=== PATIENT | female | born 1945 | race Caucasian/White ===

== ENCOUNTER 2020-01-22 06:54 | Emergency (ER) | payer MEDICARE, SELFPAY ==
[2020-01-22] VITALS (8 sets, daily range): BP systolic 102–185; BP diastolic 67–112; PULSE 77–114; RESP 14–22; TEMP 36.2; O2SAT 78–99
--- NOTE | ~2020-01-22 | XR_ITS ---
XR abdomen NG/feed tube insert INDICATION: Evaluate NG tube position. TECHNIQUE: Limited KUB perform for evaluating NG tube . COMPARISON: No prior studies for comparison. FINDINGS: There is a large hiatal hernia containing the NG tube above the diaphragm. Moderate gastric distention with air-fluid level. Visualized bowel gas pattern is nonspecific. IMPRESSION: 1: Large hiatal hernia containing the NG tube above the diaphragm. Moderate gastric distention with a ir-fluid level. Reviewed, dictated and finalized at location A. IMPRESSION: 1: Large hiatal hernia containing the NG tube above the diaphragm. Moderate gas tric distention with air-fluid level.
--- NOTE | ~2020-01-22 | CT_ITS ---
EXAMINATION: CT abdomen pelvis w con EXAM DATE: 01/22/2020 08:22 INDICATION: Sick after dinner last night, nausea vomiting abdominal pain. History hiatal hernia. TECHNIQUE: Spiral CT of the abdomen and pelvis was performed following intravenous injection of 100 m L Omnipaque 350. Axial, coronal and sagittal images were reviewed. The dose-length product (DLP) fo r this examination was 343.88 mGy-cm. The exposure was tailored according to patient size (auto mA e xposure control), and iterative reconstruction (ASIR) was used as additional dose reduction technique . There is no prior study for comparison. FINDINGS: There is large gastroesophageal hiatal hernia with gastric volvulus, gastric body rotated a april the aortic hiatus. This also appears to have mass effect on the compressed gastric antrum as it extends through the hiatus, only small amount of bowel contents or where as the stomach is severely d istended with fluid and gas. The liver, spleen, adrenal glands and pancreas are unremarkable. There are gallstones within an othe rwise unremarkable gallbladder. No evidence of obstructive biliary disease. Portal and splenic vein s are patent. Kidneys enhance symmetrically. There is no hydronephrosis. The uterus is not identi fied and has likely been surgically resected. There may be some component of pelvic prolapse. The bl adder is unremarkable. There is no retroperitoneal or pelvic lymphadenopathy. The appendix is normal. Apparent rectal wall thickening, can't exclude rectal cancer. There is extens deshawn colonic diverticulosis. There is no adjacent inflammatory change to suggest diverticulitis. The stomach and small bowel are unremarkable. There is expected amount of colonic stool. No free intra peritoneal gas. The heart is normal in size. There are no pericardial or pleural effusions. The l davie bases are unremarkable. There are no osteoblastic or osteolytic lesions identified. IMPRESSION: 1. Findings consistent with gastric volvulus; recommend surgical consult. 2. Apparent rectal wall thickening, possible cancer. 3. Probable pelvic prolapse. 4. Extensive colonic diverticulosis. 5. Cholelithiasis. I discussed gastric volvulus with Nafisa Tyson MD at 01/22/2020 08:43 CDT. Reviewed, dictated and finalized at location B.
--- NOTE | 2020-01-22 07:08 | ED.NAVMDI ---
HPI - Nausea/Vomiting/Diarrhea General Chief complaint: Nausea/Vomiting/Diarrhea Stated complaint: vomiting Time Seen by Provider: 01/22/20 07:08 Source: patient and family Mode of arrival: ambulatory Limitations: no limitations History of Present Illness HPI Narrative: Patient is a 74-year-old female with a history of hiatal hernia who presents for evaluation of epigastric and lower chest discomfort. Patient states her symptoms began after eating spaghetti meatballs last night, states before that she had been feeling fine. She reports a burning sensation in the epigastrium with radiation into her chest. She denies back pain, jaw pain or shoulder pain. She reports nausea and vomiting. She denies shortness of breath or difficulty breathing. No diaphoresis. No fever or cough. Patient states she struggles with this lower chest pain on a chronic basis and attributes this to her hiatal hernia. She reports mild constipation, no abdominal distention, no ripping or tearing sensation to the flank and no urinary symptoms. Related Data Allergies Allergy/AdvReac Type Severity Reaction Status Date / Time No Known Allergies Allergy Unknown Unverified 01/22/20 07:09 Review of Systems Review of Systems: Narrative: CONSTITUTIONAL: Denies fever, chills, or sweats. EYES: Denies visual changes, redness, or discharge. ENT: Denies rhinorrhea, congestion, sore throat, or otalgia. CARDIOVASCULAR: Reports lower chest pain RESPIRATORY: Denies cough or dyspnea. GASTROINTESTINAL: Reports upper abdominal pain, nausea, vomiting and constipation GENITOURINARY: Denies dysuria or hematuria. SKIN: Denies rash or itching. MUSCULOSKELETAL: Denies back pain, joint pain, or myalgia. NEUROLOGIC: Denies headache, numbness, or weakness. [facility] Past Medical History Medical History Hiatal hernia Hyperlipidemia Surgical History Surgical History (Updated 01/22/20 @ 07:25 by Nafisa Tyson MD) H/O rectocele repair H/O: hysterectomy Family History Family History (Updated 03/29/17 @ 10:21 by DOCTOR UNKNOWN) Other Diabetes mellitus Social History Social History Smoking status: Never smoker Alcohol intake: current Gender identity (if verbalized by the patient): Female Exam Narrative: Exam Narrative: GENERAL: Awake, alert, conversant HEAD: Normocephalic, atraumatic. EYES: PERRLA and EOMI. ENT: Nares clear, no rhinorrhea or epistaxis. Mucous membranes dry NECK: Supple. CHEST: No respiratory distress, breathing even and non labored HEART: Tachycardic rate, sinus rhythm ABDOMEN:Non distended, mild epigastric tenderness, mild right upper quadrant tenderness, no rebound, no guarding, positive periumbilical tenderness, no left lower quadrant tenderness, nonrigid EXTREMITIES: Normal range of motion. No edema. SKIN: Warm, dry, no rash. NEURO:No focal deficits. Alert and oriented x3 Course Vital Signs Vital signs: Vital Signs Temperature 36.2 C L 01/22/20 07:00 Pulse Rate 114 H 01/22/20 07:00 Respiratory Rate 18 01/22/20 07:00 Blood Pressure 161/112 H 01/22/20 07:00 Pulse Oximetry 99 01/22/20 07:00 Temperature 36.2 C L 01/22/20 07:00 Pulse Rate 83 01/22/20 13:03 Respiratory Rate 14 01/22/20 13:03 Blood Pressure 127/86 01/22/20 13:03 Pulse Oximetry 95 01/22/20 13:03 MDM - Nausea/Vomiting/Diarrhea MDM Narrative Medical decision making narrative: Patient is a 74-year-old female who presented for evaluation of abdominal pain and epigastric pain. At the time of assessment, patient is mildly dehydrated appearing and tachycardic. Otherwise she is hypertensive, afebrile. Patient without any COVID type features, no cough, fever, no loss of sense of taste or smell or recent sick contacts. Patient was tender in the epigastrium, no severe distention or rigidity. IV access obtained and labs were drawn. Pat
--- NOTE | 2020-01-22 07:23 | ECG_ITS ---
Measurements Intervals [place] Rate: 83 P: 70 FL: 158 QRS: -38 QRSD: 105 T: 65 QT: 419 QTc: 493 Interpretive Statements SINUS RHYTHM LEFT AXIS DEVIATION BORDERLINE R WAVE PROGRESSION, ANTERIOR LEADS BORDERLINE ST-T WAVE ABNORMALITY- HIGH LATERAL LEADS BASELINE ARTIFACT- I, III BORDERLINE ECG Electronically Signed On 01-22-2020 8:11:50 CDT by Rodrick Go D.O.
[2020-01-22] MEDS: SODIUM CHLORIDE 0.9% IV 2,000 ML 999 ML IV CONT (07:42)
[2020-01-22] MEDS: ONDANSETRON INJ 4 MG/2 ML VIAL IV PUSH (07:43)
[2020-01-22] MEDS: DICYCLOMINE HCL INJ 20 MG/2 ML VIAL IM (07:43)
[2020-01-22 07:49] LABS: Basophils Percent Auto 0.2 % (0.2-1.2); Hemoglobin 15.6 g/dL (12.0-15.0); Immature Granulocyte Absolute 0.03 K/mm3 (0.00-0.031); Immature Granulocyte Percent A 0.3 % (0-0.5); Lymphocytes Absolute Auto 0.95 K/mm3 (0.9-3.2); Lymphocytes Percent Auto 9.4 % (18.3-44.2); Mean Corpuscular HGB Conc 33.2 g/dl (32-36); Mean Corpuscular Hemoglobin 32.7 pg (26-34); Mean Corpuscular Volume 98.5 fl (80-100); Mean Platelet Volume 10.3 fl (7.4-10.4); Monocytes Absolute Auto 0.2 K/mm3 (0.1-0.6); Monocytes Percent Auto 2.2 % (2.6-8.5); Neutrophils Absolute Auto 8.9 K/mm3 (1.3-6.7); Neutrophils Percent Auto 87.9 % (45.5-73.1); Platelet Count Result 277 k/mm3 (150-375); Red Blood Count 4.77 M/mm3 (4.2-5.4); Red Cell Distribution Width 12.2 % (11.5-14.5); White Blood Count 10.1 K/mm3 (4.5-10.0)
[2020-01-22 07:58] LABS: Prothrombin Time 12.6 Seconds (11.1-14.7)
[2020-01-22 07:59] LABS: Partial Thromboplastin Time 24.9 SECONDS (22.3-36.8)
[2020-01-22 08:01] LABS: Alanine Aminotransferase 22 U/L (4-35); Alkaline Phosphatase 106 U/L (38-126); Anion Gap 13 mmol/L (8-16); Aspartate Amino Transferase 34 U/L (14-36); Bilirubin,Total 0.7 mg/dL (0.2-1.3); Blood Urea Nitrogen 15 mg/dL (7-17); Carbon Dioxide 26 mmol/L (22-30); Chloride 98 mmol/L (98-107); Estimated CRCL calculation 70 ml/min; Estimated Glomerular Filt Rate > 60; Glucose 181 mg/dL (65-105); Lipase 36 U/L (23-300); Potassium 3.8 mmol/L (3.4-5.0); Sodium 137 mmol/L (137-145)
[2020-01-22 08:08] LABS: Glucose Point of Care 147 (65-105)
[2020-01-22 08:13] LABS: Troponin I < 0.012 ng/mL (0.000-0.034)
[2020-01-22 09:01] LABS: Add Urine Microscopic? YES; Appearance Urine Clear (Clear); Bilirubin Urine Negative (Negative); Blood Urine Negative (Negative); Color Urine Straw (Yellow); Glucose Urine UA 3+ mg/dL (Negative); Ketones Urine Trace mg/dL (Negative); Leukocyte Esterase Ur Negative LEU/UL (Negative); Mucus Urine Rare /lpf; Nitrate Urine Negative (Negative); Protein Urine 3+ mg/dL (Negative); RBC Urine 0-2 /hpf (0-2); Squamous Epithelial Cell Urine Rare /hpf (Few); Urobilinogen Urine Negative mg/dL (<2.0); WBC Urine 0-3 /hpf
[2020-01-22] MEDS: METOCLOPRAMIDE HCL INJ 10 MG/2 ML VIAL IV PUSH (09:02)
[2020-01-22 10:20] LABS: Lactic Acid Reflex 3.9 mmol/L (0.7-2.1)
[2020-01-22] MEDS: SODIUM CHLORIDE 0.9% IV 1,000 ML 150 ML IV CONT (12:47)
[2020-01-22 13:07] LABS: Reflex Lactic Acid Yes or No Add Lactic
== END 2020-01-22 13:00 | disposition short-term general hospital (02) ==
PROVIDERS: Emergency Provider Emergency Medicine; PCP Family Medicine Adolescent Medicine
DX: K56.2 Volvulus (principal); A41.9 Sepsis, unspecified organism; R65.20 Severe sepsis without septic shock; E87.2 Acidosis; E78.5 Hyperlipidemia, unspecified
CPT/HCPCS: 36415; 74177; 80053; 81001; 82948; 83605; 83690; 84484; 85025; 85610; 85730; 93005; 96361; 96365; 96372; 96375; 99291; J0500; J2405; J2543; J2765; J7030; Q9967

== ENCOUNTER → 2021-02-24 16:16 | Outpatient (CLI) | payer MEDICARE, SELFPAY ==
--- NOTE | ~2021-02-24 | XR_ITS ---
EXAMINATION: XR chest 2V 02/24/2021 16:46 INDICATION: Right posterior chest pain PROCEDURE: 2 view chest COMPARISON: No prior studies for comparison. FINDINGS: The lungs are clear. The cardiomediastinal silhouette is within normal limits. There are no pleural effusions. There is no pneumothorax suspected. There is atherosclerosis and mild ectasia of the thoracic aorta. IMPRESSION: 1: NO ACUTE CARDIOPULMONARY DISEASE. Reviewed, dictated and finalized at location A.
--- NOTE | ~2021-02-24 | XR_ITS ---
XR scapula RT 02/24/2021 16:46 INDICATION: Persistent right posterior chest pain. PROCEDURE: 2 views right scapula COMPARISON: No prior studies for comparison. FINDINGS: Fracture, dislocation or subluxation is not identified. There is polyarticular osteoarthrit is of the right shoulder. The soft tissues appear within normal limits. No foreign bodies are identi fied. IMPRESSION: 1: NO ACUTE BONE OR JOINT ABNORMALITY IDENTIFIED. Reviewed, dictated and finalized at location A.
== END ==
PROVIDERS: PCP Family Medicine Adolescent Medicine; Visit Provider Family Medicine Adolescent Medicine
DX: R07.89 Other chest pain (principal); I70.0 Atherosclerosis of aorta
CPT/HCPCS: 71046; 73010

== ENCOUNTER → 2022-01-26 10:57 | Outpatient (CLI) | payer MEDICARE, SELFPAY ==
--- NOTE | ~2022-01-26 | MM_ITS ---
EXAMINATION: MM screening carley BI w isai HISTORY: Screening mammogram TECHNIQUE: Craniocaudal and mediolateral oblique 3-D tomosynthesis images were obtained and synthetic 2-D images were generated. CAD analysis was submitted and interpreted. COMPARISON: 05/09/2019, 03/16/2017 bilateral screening mammogram examinations BREAST PARENCHYMAL COMPOSITION: The breasts are almost entirely fatty. FINDINGS: There is no evidence of suspicious mass, calcification, or architectural distortion to sugg est malignancy in either breast. There has been no suspicious interval change. IMPRESSION: 1. No mammographic evidence of malignancy. 2. Recommend routine screening mammography in one year. BI-RADS Category 1: Negative Reviewed, dictated and finalized at location A.
== END ==
PROVIDERS: PCP Family Medicine Adolescent Medicine; Visit Provider Family Medicine Adolescent Medicine
DX: Z12.31 Encounter for screening mammogram for malignant neoplasm of breast (principal)
CPT/HCPCS: 77063; 77067

== ENCOUNTER → 2022-02-28 15:30 | Outpatient (CLI) | payer MEDICARE, SELFPAY ==
--- NOTE | ~2022-02-28 | XR_ITS ---
XR scapula LT DATE: 02/28/2022 15:44 INDICATION: Left scapular spine pain TECHNIQUE: 2 views COMPARISON: None FINDINGS: There is joint space narrowing and spurring at the left glenohumeral joint consistent with osteoarthritis. There is mild degenerative change at the left acromioclavicular joint. No scapular fr acture or bone destruction is detected. No abnormal left shoulder soft tissue calcification. IMPRESSION: Left glenohumeral osteoarthritis Reviewed, dictated and finalized at location A.
== END ==
PROVIDERS: PCP Family Medicine Adolescent Medicine; Visit Provider Family Medicine Adolescent Medicine
DX: M25.512 Pain in left shoulder (principal); M19.012 Primary osteoarthritis, left shoulder
CPT/HCPCS: 73010

== ENCOUNTER 2022-03-09 00:16 | Day surgery (SDC) | payer MEDICARE, SELFPAY ==
[2022-03-04 15:23] VITALS: BMI 24.8
--- NOTE | 2022-03-04 15:36 | PC.NURSE ---
Report to the Outpatient Waiting Room, entrance under the green pavilion located off [facility], at time ___0900____ on date __03/09/22 . Planned Procedure Time: ___1100 . Time changes happen often and if your time is changed the preop area will call you the afternoon before. - You and your visitor will be asked to self-screen and do not enter if you have any COVID symptoms. - We encourage only one visitor and NO visitors under age 16 are allowed at this time. Your visitor will receive communication by the phone number that is given day of service. - The patient visitor is requested to social distance or may leave the building when not with patient due to restrictions. - A mask is required within the hospital. Patients may have clear liquids (water, carbonated beverages, clear teas, apple juice) until 3 hours prior to surgery (0800 AM) with a maximum of 20 ounces. - No food from midnight until time of surgery - Infants may have breast milk until 4 hours before surgery, infant formula 6 hours prior to surgery. - Children will be allowed to drink immediately following surgery. If applicable, please bring a bottle or sippy cup to assist with drinking. Juice, water, soda, and popsicles are readily available. For infants on formula, please bring formula the day of surgery. Pacifiers are allowed. Take the following medications with a SIP of water the morning of surgery: NONE Medications to discontinue per physician N/A Date to take last dose Please no make-up, nail macanese, hairspray, perfume, deodorant, or body powder the day of surgery. No jewelry (including any body piercings) or valuables the day of surgery, leave them at home. Please take a shower or bath the night before, or the morning of, surgery with an antibacterial soap. Wear comfortable, loose fitting clothing. Children are encouraged to wear pajamas. - Jewelry must be removed prior to entering the operating room. Rings and piercings that are not removed may be cut off. - The hospital will not accept responsibility for valuables. - Please leave all valuables, including medications, at home the day of surgery. If you are going home after surgery, a licensed local delivery driver must drive you home. - NO public transportation without another adult. - We recommend that an adult stay with you for 24 hours following discharge. - We also recommend that you do not drive, make important decision, drink alcoholic beverages, or take any drugs that were not prescribed by your health care provider for at least 24 hours after your discharge time. For Pediatric surgeries, we recommend two adults accompany the child home. Follow any additional instructions given to you from your surgeon. If you or anyone in your household have experienced Covid symptoms in the past week, please notify your surgeon or the nurse liaison at the phone number below for possible testing. Telephone instructions given to PT and asked if any additional questions and then verbalized understanding. Patient advised to call surgeon office or pre surgery nurse liaison [phone] if any additional questions.
[2022-03-09 09:22] VITALS: BP 129/66; PULSE 76; RESP 18; TEMP 37; O2SAT 97
[2022-03-09] MEDS: LACTATED RINGERS 1,000 ML 30 ML IV CONT (09:51)
--- NOTE | 2022-03-09 10:43 | P.PNAN_ITS ---
Anes - Initial Pre Proc Eval Procedure: Operation Date: 03/09/22 11:00 Proposed Procedures p Excision Two Lipomas Left Arm, One Lipoma Right Arm - Vasile Christie MD Date/Time: 03/09/22 10:43 Surgeon: Vasile Christie MD Pre Op Diagnosis: multiple lipomas bilat upper extremities Patient Data Age: 76 Gender: F Height: 1.6 m Weight: 63 kg Last Vital Signs Temp 37.0 C 03/09/22 09:22 Pulse 76 03/09/22 09:22 Resp 18 03/09/22 09:22 BP 129/66 03/09/22 09:22 Pulse Ox 97 03/09/22 09:22 O2 Del Method Room Air 03/09/22 09:22 Allergies Allergy/AdvReac Type Severity Reaction Status Date / Time No Known Allergies Allergy Verified 03/09/22 09:58 Home Medications Medication Instructions Recorded Confirmed Type pantoprazole 40 mg tablet,delayed 40 mg PO QAM #90 tabs 02/28/22 03/09/22 Rx release Patient hx anesthesia problems: post op nausea/vomiting Family hx anesthesia problems: none Results Review: All pre-operative results and documents have been reviewed as part of the pre- operative evaluation. 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) Surgical History Surgical History H/O rectocele repair H/O: hysterectomy Family History Family History Father , age 62 Heart disease Diabetes mellitus Hypertension Mother , age 86 Heart disease Hypertension Other Breast cancer Sibling Heart disease Hypertension Social History Social History Smoking status: Never smoker Second hand tobacco smoke exposure: No Alcohol intake: current Alcohol use details: STATES 1-2 GLASSES OF WINE A WEEK Substance use: never Substance use type: does not use Living arrangements: alone Additional occupation/education comments: [employer] Gender identity (if verbalized by the patient): Female Sexual Orientation (if Verbalized by the Patient): Straight or Heterosexual Spiritual care concerns: No Agree to blood products: Yes Anes - Eval Final PreProcedure Day of Procedure 03/09/22 10:43 Patient weight: normal Heart: regular rate and rhythm Lungs: clear to auscultation Airway: Mallampati scale class II Neurological: alert and oriented Last oral intake: >/= 8 hours ASA classification: II Emergent: no Anesthetic plan: proceed Anesthesia type and monitoring: general GIVS and standard monitoring Results Review: All pre-operative results and documents have been reviewed as part of the pre- operative evaluation. Informed Consent: The patient's anesthetic plan and its attendant risks and benefits were discussed with the patient/family/POA. Questions were solicited and answers provided to the satisfaction of the patient/family/POA.
--- NOTE | 2022-03-09 10:54 | WPDHPUPDATE1 ---
History and Physical Update Update Date/Time: 03/09/22 10:54 History and Physical has been reviewed, including an updated exam of the patient. There are NO changes in the patient's condition. Risks, benefits, and alternatives have been discussed and questions answered. Patient agrees to proceed with procedure.
[2022-03-09] MEDS: ceFAZolin 2 GM/D5W 50 ML 2 GM/50 ML BAG IVPB (11:10)
[2022-03-09] MEDS: BUPIVACAINE/EPINEPHRINE 0.25% 50 ML VIAL INFILTRATE (11:31)
[2022-03-09 12:18] VITALS: BP 132/62; PULSE 70; RESP 16; O2SAT 98
--- NOTE | 2022-03-09 12:31 | W.PM.PROC2 ---
Procedure Note - Detailed Date of Procedure 03/09/22 Pre-op Diagnosis multiple lipomas bilat upper extremities Post-op Diagnosis Same Procedure Performed Excision 4 cm right upper arm lipoma, excision 3.5 cm left deltoid lipoma, excision 3 cm left anterior upper arm lipoma, excision 3.3 cm left posterior arm lipoma. Surgeon Vasile Christie MD Online Advertising Director Laurie Telles [facility] Anesthesia MAC and Local (0.25% Marcaine with epinephrine) Indications Patient has a history of lipomas being removed in the past. She presented with 1 lipoma in the lateral upper right arm. She had 2 palpable lipomas on the upper left arm, 1 in the area of the deltoid and 1 in the mid humerus. These have all been tender and have gotten larger over time. She is taken to surgery now for excision of all 3 lipomas. Findings Right arm lipoma 4 cm, the left deltoid lipoma was 3.5 cm. In the mid humerus there was actually 2 lipomas, 1 was 3 cm and was more anterior, the posterior lipoma was 3.3 cm. Both the lipomas in the mid humerus were able to be excised through 1 incision. Description of Procedure The patient was checked in preoperative holding area. All 3 of the subcutaneous masses were noted and proposed incisions marked over each. The patient was then taken to surgery and anesthesia was introduced. Both arms were positioned so that we could just prep and drape once and work on 1st the right-sided then the left side. We did start on the patient's right. Local was infiltrated in the area of the anticipated incision as well as around the area of the palpable mass. Incision was made and dissection was carried down to the subcutaneous mass. It appeared to be a lipoma as suspected. Blunt and sharp dissection was then used and the lipoma was excised from the subcutaneous and off the triceps muscle. The lipoma was measured and then sent to pathology. The wound was infiltrated with additional local. Cautery was used to achieve hemostasis. The subcutaneous was closed with interrupted 3-0 Vicryl suture. The skin was closed loosely with 4-0 subcuticular Vicryl. The skin was closed finally with a running 4-0 Monocryl skin suture. Wound was dressed with Exofin surgical adhesive. We then turned our attention to the patient's left side where 2 palpable masses had been noted. Patient was turned slightly so the left side was more elevated. Local anesthetic was infiltrated into each of the anticipated incisions, 1 over the deltoid muscle and 1 in the mid humerus area. Incision was made over the deltoid subcutaneous mass. Dissection was carried down through the superficial subcutaneous and the lipoma was found. Blunt sharp dissection was used in this lipoma was able to be dissected off the deltoid fascia and from the surrounding subcutaneous. It was extricated through the wound. I measured the lipoma with findings as above. The wound was then infiltrated with local and cautery was used to achieve good hemostasis. This wound was closed with subcutaneous interrupted 3-0 Vicryl stitches followed by interrupted 4-0 Vicryl subcuticular stitches. We turned our attention to the area of the mid humerus where the last lipoma was noted. Local was infiltrated here in similar fashion. Incision was made and dissection was carried down through the subcutaneous. One weld delineated lipoma that was more anterior was found. This was dissected free from the surrounding tissues with blunt sharp dissection. It was excised completely. I palpated in the wound there was a 2nd lipoma palpable through this incision that was located more posterior. This lipoma was then exposed and carefully dissected from the subcutaneous tissue and off the triceps fascia. This was excised as well. Each of these lipomas were then measured with findings as above. The wound was made hemostatic with the cautery. Additional local was used as well. This wound was closed with subcutaneous interrupted 3-0 Vicryl suture. The skin
[2022-03-09 12:48] VITALS: BP 139/70; PULSE 62; RESP 16; O2SAT 98
[2022-03-09 13:15] VITALS: BP 141/68; PULSE 65; RESP 16; O2SAT 98
== END 2022-03-09 13:37 | disposition home or self-care (01) ==
PROVIDERS: PCP Family Medicine Adolescent Medicine; Visit Provider Surgery
PROC: (CPT 24071; principal; 2022-03-09 11:00)
DX: D17.21 Benign lipomatous neoplasm of skin and subcutaneous tissue of right arm (principal); D17.22 Benign lipomatous neoplasm of skin and subcutaneous tissue of left arm
CPT/HCPCS: 24071 ×2; 88304; J0690; J2704; J3010; J7120

== ENCOUNTER 2023-08-25 10:27 | Outpatient (CLI) | payer MEDICARE, SELFPAY ==
--- NOTE | ~2023-08-25 | XR_ITS ---
[id number] 08/25/2023 11:00 Indication: Neck pain Procedure: 3 views cervical spine Comparison: No prior studies for comparison. Findings: C6 and C7 are not well visualized on the lateral view. No gross fracture or malalignment. N o prevertebral soft tissue swelling. Odontoid process is not well visualized. Impression: 1: Limited study. No gross fracture or malalignment. Reviewed, dictated and finalized at location B. Impression: 1: Limited study. No gross fracture or malalignment.
--- NOTE | ~2023-08-25 | XR_ITS ---
EXAMINATION: XR thoracic spine 3V DATE: 08/25/2023 11:00 INDICATION: Other specified disorders of bone, shoulder. TECHNIQUE: 3 views of thoracic spine were obtained. COMPARISON: Chest 2 views 02/24/2021 FINDINGS: There is kyphosis of thoracic spine. There is mild chronic anterior wedging of multiple mid thoracic vertebral bodies. There is severely decreased disc height at multiple levels in mid thoraci c spine. IMPRESSION: 1. Severe thoracic spondylosis. 2. Thoracic kyphosis. Reviewed, dictated and finalized at location A.
== END 2023-08-25 10:28 ==
LOC: MICIMG 10:28
PROVIDERS: PCP Family Medicine Adolescent Medicine; Visit Provider Family Medicine Adolescent Medicine
DX: M43.04 Spondylolysis, thoracic region (principal); M40.294 Other kyphosis, thoracic region; M89.8X1 Other specified disorders of bone, shoulder
CPT/HCPCS: 72040; 72072

== ENCOUNTER 2023-10-09 13:52 | Outpatient (NON) | payer MEDICARE, SELFPAY ==
[2023-10-09 15:27] LABS: Hemoglobin 10.5 g/dL (12.0-15.0); Mean Corpuscular HGB Conc 31.8 g/dl (32-36); Mean Corpuscular Hemoglobin 33.5 pg (26-34); Mean Corpuscular Volume 105.4 fl (80-100); Platelet Count Result 228 k/mm3 (150-375); Red Blood Count 3.13 M/mm3 (4.2-5.4); Red Cell Distribution Width 14.3 % (11.5-14.5); White Blood Count 4.6 K/mm3 (4.5-10.0)
[2023-10-09 15:46] LABS: Anion Gap 8 mmol/L (4-12); Blood Urea Nitrogen 11 mg/dL (7-17); Calcium 8.8 mg/dL (8.4-10.2); Carbon Dioxide 25 mmol/L (22-30); Chloride 108 mmol/L (98-107); Estimated Glomerular Filt Rate > 60; Glucose 71 mg/dL (65-110); Potassium 3.2 mmol/L (3.4-5.0); Sodium 141 mmol/L (137-145)
[2023-10-09 16:04] LABS: NT Pro B Type Natriuretic Pept 186 pg/mL (19.9-100)
== END 2023-10-09 13:53 | disposition home or self-care (01) ==
PROVIDERS: PCP Family Medicine Adolescent Medicine; Visit Provider Family Medicine Adolescent Medicine
DX: I21.4 Non-ST elevation (NSTEMI) myocardial infarction (principal); Z79.82 Long term (current) use of aspirin; I25.10 Atherosclerotic heart disease of native coronary artery without angina pectoris; Z48.815 Encounter for surgical aftercare following surgery on the digestive system; Z90.49 Acquired absence of other specified parts of digestive tract
CPT/HCPCS: 36415; 80048; 83880; 85027

== ENCOUNTER 2023-11-07 11:54 | Outpatient (NON) | payer MEDICARE, SELFPAY ==
[2023-11-07 12:34] LABS: Anion Gap 13 mmol/L (4-12); Blood Urea Nitrogen 11 mg/dL (7-17); Calcium 8.7 mg/dL (8.4-10.2); Carbon Dioxide 23 mmol/L (22-30); Chloride 106 mmol/L (98-107); Estimated Glomerular Filt Rate > 60; Glucose 111 mg/dL (65-110); Potassium 2.9 mmol/L (3.4-5.0); Sodium 142 mmol/L (137-145)
[2023-11-07 12:38] LABS: Basophils Absolute Auto 0.1 K/mm3 (0.0-0.1); Basophils Percent Auto 0.9 % (0.2-1.2); Eosinophils Absolute Auto 0.3 K/mm3 (0-0.3); Eosinophils Percent Auto 4.3 % (0-4.4); Hematocrit 35.2 % (37.0-47.0); Hemoglobin 11.3 g/dL (12.0-15.0); Immature Granulocyte Absolute 0.01 K/mm3 (0.00-0.031); Immature Granulocyte Percent A 0.2 % (0-0.5); Lymphocytes Absolute Auto 1.72 K/mm3 (0.9-3.2); Lymphocytes Percent Auto 29.4 % (18.3-44.2); Mean Corpuscular HGB Conc 32.1 g/dl (32-36); Mean Corpuscular Volume 102.9 fl (80-100); Mean Platelet Volume 11.4 fl (7.4-10.4); Monocytes Absolute Auto 0.3 K/mm3 (0.1-0.6); Monocytes Percent Auto 5.8 % (2.6-8.5); Neutrophils Absolute Auto 3.5 K/mm3 (1.3-6.7); Neutrophils Percent Auto 59.4 % (45.5-73.1); Platelet Count Result 240 k/mm3 (150-375); Red Blood Count 3.42 M/mm3 (4.2-5.4); Red Cell Distribution Width 13.5 % (11.5-14.5); White Blood Count 5.9 K/mm3 (4.5-10.0)
== END 2023-11-07 11:55 | disposition home or self-care (01) ==
PROVIDERS: PCP Family Medicine Adolescent Medicine; Visit Provider Internal Medicine Cardiovascular Disease
DX: I10 Essential (primary) hypertension (principal); K21.9 Gastro-esophageal reflux disease without esophagitis
CPT/HCPCS: 80048; 85025

== ENCOUNTER 2024-05-28 14:40 | Outpatient (CLI) | payer OTHER, SELFPAY ==
--- NOTE | ~2024-05-28 | XR_ITS ---
EXAMINATION: XR shoulder LT min 2V DATE: 05/28/2024 15:20 INDICATION: Distal left clavicle fracture. TECHNIQUE: 4 views of left shoulder were obtained. COMPARISON: Left scapular radiographs 02/28/2022 FINDINGS: Nonstandard views decrease sensitivity and specificity. There is inferior dislocation of ac romion with respect to distal clavicle. There is an avulsion fracture of lateral aspect of olecranon with 7 mm distraction. There is heterotopic ossification near distal clavicle that may be a fracture. There is severe osteoarthritis of glenohumeral joint. IMPRESSION: 1. Inferior dislocation of the acromion with respect to distal clavicle. 2. Avulsion fracture of olecranon. 3. Heterotopic ossification near distal clavicle that may be a fracture. Consider CT. 4. Severe osteoarthritis of glenohumeral joint. Reviewed, dictated and finalized at location A. R TEAM LEADER IMPRESSION: 1. Inferior dislocation of the acromion with respect to distal clavicle. 2. Avulsion fracture of olecranon. 3. Heterotopic ossification near distal clavicle that may be a fracture. Consid er CT. 4. Severe osteoarthritis of glenohumeral joint.
== END 2024-05-28 14:41 | disposition home or self-care (01) ==
PROVIDERS: PCP Family Medicine Adolescent Medicine; Visit Provider Family Medicine Adolescent Medicine
DX: S43.1 Subluxation and dislocation of acromioclavicular joint (principal); S52.022D Displaced fracture of olecranon process without intraarticular extension of left ulna, subsequent encounter for closed fracture with routine healing; X58.XXXD Exposure to other specified factors, subsequent encounter; M61.9 Calcification and ossification of muscle, unspecified; M19.012 Primary osteoarthritis, left shoulder; S42.002D Fracture of unspecified part of left clavicle, subsequent encounter for fracture with routine healing
CPT/HCPCS: 73030